=== PATIENT | female | born 1985 | race Caucasian/White ===

== ENCOUNTER 2019-01-01 05:57 | Day surgery (SDC) | payer OTHER ==
[~2019-01-01] VITALS: Ht 157.5 cm; Wt 63.6 kg
[2019-01-01] MEDS ORDERED: RINGERS SOLUTION,LACTATED 1,000 ML IV ONE (06:27)
[2019-01-01] MEDS: RINGERS SOLUTION,LACTATED 1,000 ML IV ONE (06:35)
[2019-01-01] MEDS ORDERED: ACETAMINOPHEN 1000 MG/ISO-OSM 100 ML IV ONE (06:52)
[2019-01-01] MEDS: BUPIVACAINE HCL/PF 0.5% 30 ML VIAL ONE (08:00)
[2019-01-01] MEDS: LIDOCAINE/PF 2% 5 ML VIAL ONE (08:00)
[2019-01-01] MEDS ORDERED: SODIUM CHLORIDE 0.9% 10 ML ONE (08:04)
== END 2019-01-01 10:15 | disposition home or self-care (01) ==
LOC: SURGERY 05:57
PROVIDERS: ATTEND Podiatrist Primary Podiatric Medicine
DX: M67.471 Ganglion, right ankle and foot (principal); Z98.890 Other specified postprocedural states; Z72.89 Other problems related to lifestyle
CPT/HCPCS: 88304; J0131; J0690; J3490; J7120